=== PATIENT | male | born 1945 | race Caucasian/White ===

== ENCOUNTER → 2017-04-03 | Outpatient (CLI) | payer MEDICARE ==
[~2017-04-03] MED LIST: ALLEGRA PO; AMLODIPINE BESY10 MG PO; ASPIRIN PO; CARDURA4 M1 PO; COLACE50 MG PO; DARVOCET-N 1001 TAB PO; EC-NAPROSYN500 MG PO; ELOCON15 G1; ELOCON15 GM TOP; FISH OIL 10001000 MG PO; FLEXERIL PO; FOLIC ACID PO; GLUCOSAMINE; HYDROCODON-ACE1 EAC9 PO; KCL PO; LASIX PO; LEVAQUIN PO; LISINOPRIL PO; METFORMIN HCL500 M1 PO; METHOTREXATE2.5 MG PO; MOTRIN20 MG/ML PO; NEURONTIN300 MG PO; SAW PALMETTO; VIT E PO; ZONEGRAN100 MG PO
--- NOTE | ~2017-04-03 | CT2 ---
[facility] A Service of [facility] RADIOLOGY TEXT RESULTS PATIENT: VETO DAVIDSON LOCATION: [facility] : 47 UNIT #: [id number] AGE: [address]: PRISCA LAM SEX: M ORDER DR: [id number] [facility] [address] [place], [place] [address] [id number] O MR#: [id number] Acc #: [id number] NAME: VETO DAVIDSON : 1945 SEX: M STUDY DATE/TIME: 04/03/2017 10:32 UNIT: [facility] ROOM: STUDY DESCRIPTION: CT Abd and Pelv W Cont Attending Physician: Gilbert Lam M.D. Referring Physician: Gilbert Lam M.D. Ordering Physician: Gilbert Lam M.D. Primary Care Physician: Suzi Pompa M.D. MEDICAL IMAGING REPORT This report is preliminary unless electronic signature is present EXAM CT abdomen and pelvis with contrast DATE 04/03/2017 HISTORY 71-year-old male with prostate cancer. Observation for metastatic disease. Restaging. No current complaints. COMPARISON CT pelvis 12/30/2014. PROCEDURE 5 mm axial images from the lung bases through the lesser trochanters after intravenous and enteric contrast administration. Sagittal and coronal reformatted images were obtained. This CT exam was performed with one or more of the following radiation dose reduction techniques: Automatic exposure control, adjustment of mA and/or kV according to patient size, and iterative reconstruction. FINDINGS ABDOMEN FINDINGS: Benign calcified granulomatous changes are present in the right hilum, azygoesophageal recess, and within the right lower lobe. Benign granulomatous changes are present within the liver and spleen. The gallbladder, pancreas and adrenal glands are within normal limits. Incidental note is made of a 6 mm low-density lesion posterior left mid kidney, technically too small to characterize, representing a cyst. There is a complex multilobulated cystic lesion projecting exophytically from the right mid to lower renal pole medially measuring approximately 3.7 cm transverse by 3.5 cm AP by 3.5 cm craniocaudal. It has some questionable internal septations within it. It cannot be further STS. [facility] A Service of [facility] & [facility] RADIOLOGY TEXT RESULTS PATIENT: VETO DAVIDSON LOCATION: [facility] : [birth year] UNIT #: [id number] AGE: [address]: PRISCA LAM SEX: M ORDER DR: characterized on this single postcontrast phase imaging study. There are shotty retroperitoneal lymph nodes, which none appear pathologically enlarged by CT criteria. No ascites is identified. PELVIS FINDINGS: The prostate gland is enlarged measuring 6.7 cm AP by 7.6 cm transverse by 8.1 cm craniocaudal. There is a mild nodular protrusion of the prostate gland into the base of the urinary bladder. Previously described right pelvic side wall nodule measuring 1.3 cm is stable. There is a 6-7 mm stone within the distal third of the left ureter. Only mild pon-jf-mfmrkl left ureterectasis. A few shotty bilateral external iliac chain nodes appear fairly stable since the 12/30/2014 examination, also suggesting benign findings. Advanced diverticular changes are present within the ruz-hm-pjqfrg sigmoid colon without CT evidence of acute diverticulitis. Advanced facet arthropathy is present particularly bilaterally at L5-S1 with grade 1 anterolisthesis L5 upon S1. Advanced degenerative disc and endplate changes at L3-4 with posterior osteophyte formation. Suspected severe canal stenosis at L3-4 and L4-5 on the basis of degenerative change. No suspicious osseous lesions are evident. IMPRESSION 1. Evhegitk-hp-fgjqyd prostatic enlargement, protruding into the base of the urinary bladder. 2. A 1.3 cm right pelvic sidewall node or nodule is stable since 12/30/2014. Other shotty abdominal retroperitoneal nodes and bilateral pelvic external iliac chain nodes are not pathologically enlarged by CT criteria. 3. There is a complex cystic lobulated lesion projecting exophytically from the right mid to lower renal pole. Both benign and malignant etiologies remain in the differential, it cannot be further characterized on this single postcontrast phase imaging study. Consider correlation to dedicated CT or MRI abdomen without and with contrast renal mass protocol for further evaluation. 4. Advanced uncomplicated colonic diverticulosis. 5. Advanced degenerative changes of the lumbar spine with suspected severe canal stenosis at L3-4 and L4-5. Dictated by... Mckenna Mosley M.D. THIS IS AN ELECTRONICALLY VERIFIED REPORT Mckenna Mosley M.D. at 04/04/2017 6:13 AM LLH/aa STS. [facility] A Service of [facility] & [facility] RADIOLOGY TEXT RESULTS PATIENT: VETO DAVIDSON LOCATION: [facility] #: [id number] : [birth year] UNIT #: [id number] AGE: [address]: PRISCA LAM SEX: M ORDER DR: TD: 04/03/2017 14:22 JOB #: [id number] MEDICAL IMAGING REPORT Page 1 of 1 COPY
--- NOTE | ~2017-04-03 | NM8 ---
[facility] A Service of [facility] RADIOLOGY TEXT RESULTS PATIENT: VETO DAVIDSON LOCATION: [facility] : [birth year] UNIT #: [id number] AGE: [address]: PRISCA LAM SEX: M ORDER DR: [id number] [facility] [address] [place], [place] [address] [id number] O MR#: [id number] Acc #: [id number] NAME: VETO DAVIDSON : 1945 SEX: M STUDY DATE/TIME: 04/03/2017 12:46 UNIT: [facility] ROOM: STUDY DESCRIPTION: MD Bone or Joint Whole Body Attending Physician: Gilbert Lam M.D. Referring Physician: Gilbert Lam M.D. Ordering Physician: Gilbert Lam M.D. Primary Care Physician: Suzi Pompa M.D. MEDICAL IMAGING REPORT This report is preliminary unless electronic signature is present EXAM Whole-body bone scan. HISTORY 71-year-old male recently diagnosed with prostate cancer 1 week ago, elevated PSA. COMPARISON CT abdomen and pelvis, 04/03/2017. FINDINGS Whole-body and selected spot images were performed of the axial and appendicular skeleton following the intravenous administration of 29.5 mCi technetium 99m MDP. The examination demonstrates increased uptake in the lumbar spine at the L3-4 level corresponding to advanced degenerative disc changes as noted on the patient's CT scan. There is increased uptake within the upper thoracic spine at approximately the T3 level. Etiology unclear but most likely degenerative in nature. Degenerative uptake is seen in the cervical spine. There is also increased uptake at the right T6 costovertebral junction and left T10 costovertebral junction. This may be degenerative or posttraumatic in nature. Increased uptake is seen within the wrists bilaterally and also within the medial compartment of both knees in a pattern consistent with degenerative uptake. There is increased uptake within the first MTP joints bilaterally and also within the lateral aspect of the right foot. This may be degenerative or posttraumatic in nature. No abnormal uptake identified within the long bones, pelvis, skull, or ribs to suggest osseous metastatic disease. Bilateral renal activity and normal bladder activity noted. IMPRESSION Multiple foci of increased uptake as detailed above which primarily is degenerative or possibly posttraumatic in nature. No convincing evidence of osseous metastatic disease, though uptake in the upper thoracic spine STS. [facility] A Service of [facility] RADIOLOGY TEXT RESULTS PATIENT: VETO DAVIDSON LOCATION: [facility] : 47 UNIT #: [id number] AGE: [address]: PRISCA LAM SEX: M ORDER DR: at the T3 level and uptake at the costovertebral junctions on the right at T6 and on the left at T10 are indeterminate but most likely degenerative in nature or posttraumatic in nature. If elected cross-sectional imaging of the thorax may be of benefit, but again no convincing evidence of osseous metastatic disease. Dictated by... Noah Edmond M.D. THIS IS AN ELECTRONICALLY VERIFIED REPORT Noah Edmond M.D. at 04/07/2017 2:13 PM ROB/marvin TD: 04/03/2017 17:27 JOB #: [id number] MEDICAL IMAGING REPORT Page 1 of 1 COPY
[2017-04-03 13:55] LABS: POC - CREATININE 0.72 mg/dL (0.64-1.27); POC - GFR >60.0 mL/min (>60)
== END | disposition home or self-care (01) ==
LOC: CNUC 08:33
PROVIDERS: Radiology Radiation Oncology
DX: C61 Malignant neoplasm of prostate (principal); N28.89 Other specified disorders of kidney and ureter; K57.30 Diverticulosis of large intestine without perforation or abscess without bleeding; M47.816 Spondylosis without myelopathy or radiculopathy, lumbar region; R94.8 Abnormal results of function studies of other organs and systems
CPT/HCPCS: 74177; 78306; 82565; A9503; Q9967